=== PATIENT | female | born 1990 | race Caucasian/White ===

== ENCOUNTER 2016-08-30 08:59 | Emergency (ER) | payer SELFPAY ==
[2016-08-30 09:20] VITALS: BMI 30.2
[2016-08-30 09:26] VITALS: BP 117/78; RESP 18; TEMP 98.9; O2SAT 100
--- NOTE | 2016-08-30 09:57 | C.PDOC ---
History Of Present Illness 25 y/o female presents to the ED with complains of sore throat, ear pain and pain with swallowing x2 days, pain 8/10. Pt also reports T-max 102 at home. Pt has been taking OTC medications with minimal relief. Pt did no take temperature at home. Denies headache, neck pain, SOB, nausea, vomiting, abdominal pain or any other complaints. Time Seen by Provider: 08/30/16 09:10 Chief Complaint (Nursing): ENT Problem History Per: Patient History/Exam Limitations: None Onset/Duration Of Symptoms: Days Current Symptoms Are (Timing): Still Present Symptoms Have Been: Continuous Severity: Moderate Pain Scale Rating Of: 8 Anticoagulant/Antiplatlet Use?: No Past Medical History Reviewed: Historical Data, Nursing Documentation, Vital Signs Vital Signs: Last Vital Signs Temp 98.9 F 08/30/16 09:18 Pulse 92 H 08/30/16 10:16 Resp 18 08/30/16 10:16 BP 117/78 08/30/16 09:18 Pulse Ox 100 08/30/16 10:43 Family History: States: Unknown Family Hx - Social History Hx Alcohol Use: No Hx Substance Use: No - Immunization History Hx Tetanus Toxoid Vaccination: No Hx Influenza Vaccination: No Hx Pneumococcal Vaccination: No Review Of Systems Except As Marked, All Systems Reviewed And Found Negative. Constitutional: Positive for: Fever ENT: Positive for: Ear Pain, Throat Pain Respiratory: Negative for: Shortness of Breath Gastrointestinal: Negative for: Nausea, Vomiting Musculoskeletal: Negative for: Neck Pain Neurological: Negative for: Headache Physical Exam - Physical Exam Appears: Non-toxic, No Acute Distress Skin: Warm, Dry, No Rash Head: Atraumatic, Normacephalic Ear(s): Bilateral: Normal (pain on exam) Nose: Normal Oral Mucosa: Moist Throat: Other (mild pharyngeal erythema with exudates) Neck: Normal ROM, Supple Lymphatic: Adenopathy (mild cervical) Cardiovascular: Rhythm Regular, No Murmur Respiratory: Normal Breath Sounds, No Rales, No Rhonchi, No Wheezing Extremity: Bilateral: Atraumatic Neurological/Psych: Oriented x3, Normal Speech ED Course And Treatment O2 Sat by Pulse Oximetry: 100 (on room air) Pulse Ox Interpretation: Normal Medical Decision Making Medical Decision Making: Pt with modified centor score of 4. Sent home with NSAIDs, penicillin, prednisone. Disposition Counseled Patient/Family Regarding: Diagnosis, Need For Followup, Rx Given - Disposition Referrals: [facility] [Outside] Disposition: HOME/ ROUTINE Disposition Time: 09:53 Condition: STABLE Prescriptions: Ibuprofen [Motrin] 600 mg PO TID #15 tab Penicillin VK [Pen-Vee K] 500 mg PO QID #40 tab Prednisone [Deltasone] 40 mg PO DAILY #6 tablet Instructions: Pharyngitis (ED) - POA Present On Arrival: None - Clinical Impression Clinical Impression: Pharyngitis - Scribe Statement The provider has reviewed the documentation as recorded by the Jerome Knox Provider Attestation: All medical record entries made by the Jerome were at my direction and personally dictated by me. I have reviewed the chart and agree that the record accurately reflects my personal performance of the history, physical exam, medical decision making, and the department course for this patient. I have also personally directed, reviewed, and agree with the discharge instructions and disposition.
[2016-08-30 10:17] VITALS: PULSE 92
== END 2016-08-30 10:17 | disposition home or self-care (01) ==
LOC: C.ER 08:59
DX: J02.9 Acute pharyngitis, unspecified (principal)

== ENCOUNTER 2018-08-31 17:10 | Emergency (ER) | payer OTHER ==
[2018-08-31 17:30] VITALS: BMI 31.1
[2018-08-31 17:32] VITALS: O2SAT 100
[2018-08-31] MEDS ORDERED: Sodium Chloride 0.9% 1,000 ML IV ONE (17:59)
[2018-08-31 18:25] LABS: BASO % 0.6 % (0.0-2.0); EOS # 0.1 K/uL (0.0-0.7); EOS % 2.3 % (0.0-4.0); HEMOGLOBIN 12.6 g/dL (11.0-16.0); LYMPH # 1.6 K/uL (1.0-4.3); LYMPH % 26.8 % (20.0-40.0); MEAN CELL VOLUME 84.4 fL (81.0-99.0); MEAN CORPUSCULAR HEMOGLOBIN 27.6 pg (27.0-31.0); MEAN CORPUSCULAR HGB CONC 32.7 g/dL (33.0-37.0); MEAN PLATELET VOLUME 8.6 fL (7.2-11.7); MONO # 0.3 K/uL (0.0-0.8); MONO % 4.9 % (0.0-10.0); NEUT % 65.4 % (50.0-75.0); NRBC % 0.1 % (0.0-2.0); RBC 4.57 Mil/uL (3.80-5.20); WHITE BLOOD COUNT 6.1 K/uL (4.8-10.8)
[2018-08-31 18:39] LABS: ALB/GLOB RATIO 1.3 (1.0-2.1); ALBUMIN 4.3 g/dL (3.5-5.0); ALT/SGPT 19 U/L (9-52); AST/SGOT 25 U/L (14-36); BLOOD UREA NITROGEN 6 mg/dL (7-17); CALCIUM 9.3 mg/dl (8.6-10.4); GFR NON-AFRICAN AMERICAN > 60; LIPASE 73 U/L (23-300)
[2018-08-31 19:58] VITALS: BP 126/84; PULSE 84; RESP 16; TEMP 98.4
--- NOTE | 2018-08-31 21:17 | C.PDOC ---
History Of Present Illness 27 year old female presents to the ED c/o abdominal pain after eating fish. Patient also c/o mild headache, also reports vomiting multiple times today. Patient states this headache is not the worse of her life. Patient denies fever, chills, visual changes, neck pain, rash, CP, SOB, bakc pain, recent travel, sick contacts. Chief Complaint (Nursing): GI Problem History Per: Patient History/Exam Limitations: no limitations Onset/Duration Of Symptoms: Hrs Current Symptoms Are (Timing): Still Present Context: Food Location Of Pain/Discomfort: Diffuse Quality Of Discomfort: "Pain" Associated Symptoms: Nausea, Vomiting. denies: Diarrhea, Constipation, Urinary Symptoms Recent travel outside of the [place]: No Additional History Per: Patient Abnormal Vaginal Bleeding: No Past Medical History Reviewed: Historical Data, Nursing Documentation, Vital Signs Vital Signs: Last Vital Signs Temp 98.4 F 08/31/18 19:57 Pulse 84 08/31/18 19:57 Resp 16 08/31/18 19:57 BP 126/84 08/31/18 19:57 Pulse Ox 100 08/31/18 19:57 Primary Care Provider: Non [facility] Provider, - Medical History PMH: No Chronic Diseases Surgical History: No Surg Hx Family History: States: Unknown Family Hx - Social History Hx Alcohol Use: No Hx Substance Use: No - Immunization History Hx Tetanus Toxoid Vaccination: No Hx Influenza Vaccination: No Hx Pneumococcal Vaccination: No Review Of Systems Constitutional: Negative for: Fever, Chills Eyes: Negative for: Vision Change Cardiovascular: Negative for: Chest Pain, Palpitations Respiratory: Negative for: Shortness of Breath Gastrointestinal: Positive for: Vomiting, Abdominal Pain. Negative for: Nausea, Diarrhea Musculoskeletal: Negative for: Neck Pain Skin: Negative for: Rash Neurological: Positive for: Headache. Negative for: Weakness, Numbness, Dizziness Physical Exam - Physical Exam Appears: Non-toxic, No Acute Distress Skin: Normal Color, Warm, Dry Head: Atraumatic, Normacephalic Eye(s): bilateral: Normal Inspection Oral Mucosa: Moist Neck: Normal ROM, Supple Chest: Symmetrical Cardiovascular: Rhythm Regular Respiratory: Normal Breath Sounds, No Rales, No Rhonchi, No Wheezing Gastrointestinal/Abdominal: Soft, No Tenderness, No Guarding, No Rebound Extremity: Normal ROM, No Tenderness, No Swelling Neurological/Psych: Oriented x3, Normal Speech, Normal Cognition Gait: Steady ED Course And Treatment - Laboratory Results Result Diagrams: 08/31/18 18:22 08/31/18 18:22 Lab Results: Total Bilirubin 0.4 mg/dL (0.2-1.3) 08/31/18 18:22 AST 25 U/L (14-36) 08/31/18 18:22 ALT 19 U/L (9-52) 08/31/18 18:22 Alkaline Phosphatase 83 U/L (38-126) 08/31/18 18:22 Total Protein 7.7 g/dL (6.3-8.3) 08/31/18 18:22 Albumin 4.3 g/dL (3.5-5.0) 08/31/18 18:22 Globulin 3.4 gm/dL (2.2-3.9) 08/31/18 18:22 Albumin/Globulin Ratio 1.3 (1.0-2.1) 08/31/18 18:22 Lipase 73 U/L (23-300) 08/31/18 18:22 O2 Sat by Pulse Oximetry: 100 (ON RA) Pulse Ox Interpretation: Normal Medical Decision Making Medical Decision Making: Plan: * Labs * Motrin 600 mg PO * Pepcid 20 mg IVP * IV fluids * Zofran 8 mg IVP Patient reports improvement, requesting medications for her headache. Patient will be D/C Disposition - Disposition Referrals: Shakir Salazar, [Non-Staff] - Disposition: HOME/ ROUTINE Disposition Time: 19:10 Condition: IMPROVED Additional Instructions: JEROMY AMAYA, thank you for letting us take care of you today. The emergency medical care you received today was directed at your acute symptoms. If you were prescribed any medication, please fill it and take as directed. It may take several days for your symptoms to resolve. Return to the Emergency Department if your symptoms worsen, do not improve, or if you have any other problems. Please contact your doctor or call one of the physicians/clinics you have been referred to that are listed on the Patient Visit Information form that is included in your discharge packet. Bring any paperwork you were given at discharge with you along with any medications you are taking to your follow up visit. Our treatment cannot replace ongoing medical care by a primary care provider outside of the emergency department. Thank you for allowing the [facility] team to be part of your care today. Follow up with your primary care doctor in 3-4 days for re-evaluation and further management. Prescriptions: Famotidine [Pepcid] 20 mg PO BID #14 tab Ibuprofen [Motrin] 600 mg PO Q6 PRN #20 tab PRN Reason: Pain, Moderate (4-7) Instructions: Dehydration, Adult (DC), Gastritis (DC) Forms: [employer] (Slovenian) - Clinical Impression Clinical Impression: Gastritis - Scribe Statement The provider has reviewed the documentation as recorded by the Scribe Rene Qureshi All medical record entries made by the Scribe were at my direction and personally dictated by me. I have reviewed the chart and agree that the record accurately reflects my personal performance of the history, physical exam, medical decision making, and the department course for this patient. I have also personally directed, reviewed, and agree with the discharge instructions and disposition.
== END 2018-08-31 19:58 | disposition home or self-care (01) ==
LOC: C.ER 17:10
DX: K29.70 Gastritis, unspecified, without bleeding (principal)
CPT/HCPCS: 80053; 81025; 83690; 85025; 96361; 96374; 96375; 99285; J2405; J7030